=== PATIENT | female | born 1930 | race Caucasian/White ===

== ENCOUNTER 2016-08-10 14:39 | Inpatient (IN) | payer MEDICARE ==
--- NOTE | ~2016-08-10 | CR72 ---
[facility] A Service of [facility] RADIOLOGY TEXT RESULTS PATIENT: NICHOLAS REA LOCATION: [facility] 202-01 : 30 UNIT #: [id number] AGE: [address]: Efren Alcantara MD SEX: F ORDER DR: [id number] [facility] [address]. [place], [place] [address] [id number] E MR#: [id number] Acc #: [id number] NAME: NICHOLAS REA : 1930 SEX: F STUDY DATE/TIME: 08/10/2016 UNIT: [facility] ROOM: STUDY DESCRIPTION: CR Chest Single View Portable Attending Physician: Ethel Webster M.D. Ordering Physician: Ethel Webster M.D. Primary Care Physician: Mihir Donaldson M.D. MEDICAL IMAGING REPORT This report is preliminary unless electronic signature is present EXAM Chest portable 08/10/2016 at 1351 hours HISTORY 86-year-old woman with fever and lethargy today. Prior history of thyroid cancer. COMPARISON Chest CT 01/22/2016. Chest film 01/21/2016. FINDINGS A single upright portable view of the chest demonstrates low lung volumes. Allowing for this, the heart size is stable at the upper limits of normal. There is a tortuous atherosclerotic aorta without change. There is perihilar vascular crowding. There is mild interstitial prominence in the perihilar regions felt likely due to atelectasis given the low lung volumes. No definite edema, pneumonia or effusion seen. Stable benign calcified granulomatous changes. IMPRESSION Low lung volume film with perihilar vascular crowding and interstitial prominence felt likely due to the expiratory nature of the film. No definite acute cardiopulmonary findings are seen. Dictated by... Allyssa Fuentes M.D. THIS IS AN ELECTRONICALLY VERIFIED REPORT Allyssa Fuentes M.D. at 08/11/2016 9:27 AM SMM/pcl [facility] A Service [facility] RADIOLOGY TEXT RESULTS PATIENT: NICHOLAS REA [id number] UNIT #: [id number] AGE: [address]: Efren Alcantara MD SEX: F ORDER DR: TD: 08/10/2016 18:15 JOB #: [id number] MEDICAL IMAGING REPORT COPY
--- NOTE | ~2016-08-10 | DS ---
Unit #: [id number] #: [id number] Patient: NICHOLAS LAURENT [id number] [address] [place], [place] [address] [id number] I MR#: [id number] NAME: NICHOLAS LAURENT ROOM: 202 Age: 86 Sex: F Admission Date: 08/10/2016 : 1930 Discharge Date: 08/16/2016 Attending Physician: Efren Alcantara M.D. Primary Care Physician: Mihir Donaldson M.D. DISCHARGE SUMMARY ADDENDUM Ms. Laurent's potassium was 2.9 the morning of discharge. It is being replaced with supplemental potassium and a magnesium will be checked. If labs are okay in followup, she will be discharged home. She should have a BMP checked in Dr. Cox's office in one week. Dictated by... Alok Garces/adriana TD: 08/16/2016 11:25 JOB #: [id number] CC: Alok Vasques M.D. DISCHARGE SUMMARY X Efren Alcantara MD X DISCHARGE SUMMARY
--- NOTE | ~2016-08-10 | CT98 ---
[facility] A Service of [facility] RADIOLOGY TEXT RESULTS PATIENT: NICHOLAS REA LOCATION: A : 30 UNIT #: [id number] AGE: [address]: Efren Alcantara MD SEX: F ORDER DR: [id number] [place] [id number] [facility]. [place], [place] [address] [id number] I MR#: [id number] Acc #: [id number] NAME: NICHOLAS REA : 1930 SEX: F STUDY DATE/TIME: 08/11/2016 18:49 UNIT: A ROOM: [facility] STUDY DESCRIPTION: CT Lumbar Spine Wo Cont Attending Physician: Efren Alcantara M.D. Ordering Physician: Efren Alcantara M.D. Primary Care Physician: Mihir Donaldson M.D. MEDICAL IMAGING REPORT This report is preliminary unless electronic signature is present EXAM CT lumbar spine without contrast HISTORY Low back pain for 2 days. No injury. TECHNIQUE This CT examination was performed with one or more of the following radiation dose reduction techniques: automatic exposure control, adjustment of mA and/or kV according to patient size, and iterative reconstruction. FINDINGS CT lumbar spine was performed without contrast. The exam is limited by motion artifact. No fracture is identified. Small Schmorl's node in the superior endplate of L1. Moderately severe disc space narrowing at L1-2. Grade 1 spondylolisthesis of L4 on L5. Mild disc space narrowing at L3-4. Moderately advanced degenerative facet arthropathy in the kpr-qd-ijerw lumbar spine from L3-4 to L5-S1. At L1-2, there is mild diffuse disc bulging and mild bilateral facet hypertrophy. At L2-3, there is mild diffuse disc bulging and moderate bilateral facet and ligamentous hypertrophy with ical-if-lxoxcqyo central canal narrowing. At L3-4, there is a mild diffuse disc bulging, moderate bilateral facet hypertrophy and moderate to moderately severe central canal narrowing. At L4-5, there is moderately severe diffuse disc bulging and facet and ligamentous hypertrophy causing severe central canal narrowing. There is also mild bilateral outlet foraminal narrowing. STS. [facility] A Service of [facility] RADIOLOGY TEXT RESULTS PATIENT: NICHOLAS REA LOCATION: A 202-01 : 30 UNIT #: [id number] AGE: [address]: Efren Alcantara MD SEX: F ORDER DR: At L5-S1, there is mild diffuse disc bulging but no significant central canal narrowing or outlet foraminal narrowing. IMPRESSION 1. No acute findings are identified. Sensitivity is limited by motion artifact. 2. Severe central canal narrowing at L4-5 secondary to diffuse disc bulging and facet and ligamentous hypertrophy. 3. Additional fipc-tt-amplhaha multilevel central canal narrowing secondary to degenerative and hypertrophic changes as described. 4. Moderately severe disc space narrowing at L1-2. 5. Grade 1 spondylolisthesis of L4 on L5. Dictated by... Brent Silver M.D. THIS IS AN ELECTRONICALLY VERIFIED REPORT Brent Silver M.D. at 08/12/2016 2:21 PM ALEXX/lily TD: 08/12/2016 06:30 JOB #: [id number] MEDICAL IMAGING REPORT COPY
--- NOTE | ~2016-08-10 | A ---
[facility] Nutrition Therapy DATE: 08/11/16 Patient: NICHOLAS REA Physician: JOCELYN Address: [address] [place] [address] Room/Bed: [address] [place] [address], Zip: [place] [address] Admit Date: 08/10/16 Date of : 30 Height: 5 2 Weight: 151 68.5 NUTRITIONAL ASSESSMENT: REASON: 3 NUTRITION RISK PT RE: WEIGHT LOSS + POOR PO INTAKE PT IS 86 Y.O. FEMALE ADMITTED FOR AMS PMH: NO RECENT PMH IN [facility]. PER CHART: HTN, DEMENTIA, HYPOTHYROIDISM, THYROID CANCER Anthropometrics: 5'2", WT: 151# (69 KG), BMI: 27.6 Labs: GLU: 111, CA+:8.2, ALB: 3.3 Meds: NACL, D5%, SYNTHROID I/O & Bowel function: 1200/1625 Skin Integrity: DRY SKIN NOTED ALL OVER BODY Estimated Nutrition Needs: INCREASED NUTRIENT NEEDS 2' WEIGHT LOSS NOTED (PER ) + DECREASED PO INTAKE AND APPETITE NOTED Assessment: CHART REVIEWED AND EVENTS NOTED. PT SEEN FOR WEIGHT LOSS + POOR INTAKE. PT CONFUSED AT TIME OF VISIT. RD SPOKE TO WHO CONFIRMED PT TO HAVE POOR PO INTAKE 2' DECREASED APPETITE D/T DEMENTIA (NOTED TO HAVE PAST 4-5 YEARS). NOTES PT HAS LOST ~5-6# PAST 2 MONTHS/3-4% NOT SIGNIFICANT BUT NOTABLE. THIS RD ENCOURAGED SMALL FREQUENT MEALS + SUPPLEMENT INTAKE. OF NOTE, PT CURRENTLY NPO 2' AMS (DX). REPORTED NO DIET QUESTIONS AT THIS TIME. RD TO FOLLOW. SEE RECOMMENDATIONS BELOW. Dx: INADEQUATE NUTRIENT INTAKE R/T DEMENTIA, DECREASED APPETITE AEB REPORT ABOVE, WEIGHT LOSS NOTED. Intervention: 1. NPO Monitoring, Evaluation and Goals: 1. PO INTAKE; PROVIDE AND CONSUME ADEQUATE NUTRITION W/NO C/O N/V/D (PO>50%) 2. WEIGHTS; PREVENT FURTHER WEIGHT LOSS; PROMOTE WEIGHT MAINTENANCE 3. LABS; WNL 4. GI; PROMOTE REGULAR GI FUNCTION MONITOR: -DIET ADVANCEMENT -PO INTAKE/APPETITE [facility] Nutrition Therapy DATE: 08/11/16 Patient: NICHOLAS REA Physician: JOCELYN Address: [address] [place] [address] Room/Bed: [address] [place] [address], Zip: [place] [address] Admit Date: 08/10/16 Date of : 30 Height: 5 2 Weight: 151 68.5 -WEIGHTS Recommendations: 1. ONCE MEDICALLY FEASIBLE, ADVANCE DIET TOLERATED TO REGULAR DIET TO BETTER FACILITATE PO INTAKE 2. ONCE DIET ADVANCES, PLEASE ORDER [place] ENSURE PUDDING BID W/MEALS 3. APPRECIATE FAMILY AND STAFF ENCOURAGE ADEQUATE KCAL, PROTEIN AND FLUID INTAKE RD WILL F/U PER PROTOCOL PT IS MODERATELY COMPROMISED Respectfully, KENY CURRIE MS, RD, LD [facility] and Nutrition[facility] Services [facility] cc: client file
--- NOTE | ~2016-08-10 | CT71 ---
[facility] A Service of [facility] & [facility] RADIOLOGY TEXT RESULTS PATIENT: NICHOLAS REA LOCATION: A 202-01 : 30 UNIT #: [id number] AGE: [address]: Efren Alcantara MD SEX: F ORDER DR: [id number] [facility] [address]. [place], [place] [address] [id number] E MR#: [id number] Acc #: [id number] NAME: NICHOLAS REA : 1930 SEX: F STUDY DATE/TIME: 08/10/2016 14:06 UNIT: [facility] ROOM: STUDY DESCRIPTION: CT Head Wo Contrast Attending Physician: Ethel Webster M.D. Ordering Physician: Ethel Webster M.D. Primary Care Physician: Mihir Donaldson M.D. MEDICAL IMAGING REPORT This report is preliminary unless electronic signature is present EXAM CT head, 08/10/2016 HISTORY Lethargic, confusion since this a.m., last seen normal at [address] exam was performed with one or more of the following radiation dose reduction techniques: Automatic exposure control, adjustment of mA and/or kV according to patient size, and iterative reconstruction. CT head performed skull base through vertex without intravenous contrast. No prior CTs of head for comparison at this institution. No comparisons. Brainstem unremarkable. Cerebellum and cerebral hemispheres show normal polk matter-white matter differentiation. No hemorrhage. No evidence of acute cortical ischemia. The midline structures are nondisplaced. There are periventricular and deep white matter tract hypodensities bilaterally most suggestive of sequelae of chronic microvascular ischemia. Ventricles, cisterns and sulci show mild generalized enlargement consistent with mild generalized atrophy. No intra- or extraaxial mass effect or abnormal intracranial fluid collection. Cavernous carotid and distal vertebral arterial calcifications are noted. The visualized paranasal sinuses and mastoid air cells show what is probably a large mucous retention cyst in the right maxillary sinus. Small mucous retention cyst left maxillary sinus. No indication of acute sinusitis. Minimal mucosal thickening in the right sphenoid sinus. No fracture. IMPRESSION 1. No acute abnormality seen in brain. If patient has ongoing neurologic symptoms, consider followup imaging, preferably with MRI if the patient is a candidate. 2. Mild generalized atrophy. [facility]. [facility] A Service of [facility] RADIOLOGY TEXT RESULTS PATIENT: NICHOLAS REA LOCATION: A 202-01 : 30 UNIT #: [id number] AGE: [address]: Efren Alcantara MD SEX: F ORDER DR: 3. Periventricular and deep white matter tract probable sequelae of chronic microvascular ischemia. 4. Cavernous carotid and distal vertebral arterial calcifications. 5. Mucous retention cysts bilateral maxillary sinuses, more pronounced on right than left. Minimal mucosal thickening right sphenoid sinus. No findings of acute sinusitis. Dictated by... Andrew Benitez M.D. THIS IS AN ELECTRONICALLY VERIFIED REPORT Andrew Benitez M.D. at 08/12/2016 4:25 PM KATIE/jessica TD: 08/10/2016 20:01 JOB #: [id number] MEDICAL IMAGING REPORT COPY
--- NOTE | ~2016-08-10 | CO ---
Unit #: [id number] #: [id number] Patient: NICHOLAS REA [id number] [address] [place], [place] [address] [id number] I MR#: [id number] NAME: NICHOLAS REA ROOM: 202 Age: 86 Sex: F Admission Date: 08/10/2016 : 1930 Attending Physician: Efren Alcantara M.D. Primary Care Physician: Mihir Donaldson M.D. CONSULTATION REPORT HISTORY OF PRESENT ILLNESS Ms. Larsen is an 86-year-old white female with a history of Alzheimer dementia, who presented due to altered mental status. 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 She has been agitated and in altered mental status since then. She was brought in by her for evaluation. In the emergency room, CT scan of the head showed no acute disease; CT scan of the abdomen and pelvis showed some dilated bladder and possibly some mild hydronephrosis, but no ureteral obstruction. Chest x-ray showed no acute infiltrate. Urinalysis showed no white cells or red cells. Chemistry was unremarkable. Sodium was 137. Ammonia level was 14. Lactic acid level was 0.9. Coags were normal. White blood cell count 10,700, hematocrit was 39.9, platelet count was normal. We were called to admit the patient. My partner gave orders overnight for admission. She has been started on Rocephin and given one dose of vancomycin. PAST MEDICAL HISTORY Significant for Alzheimer dementia, hypothyroidism on replacement, history of thyroid cancer, and history of hypertension. ALLERGIES No known allergies. MEDICATIONS Listed include levothyroxine and losartan. PAST SURGICAL HISTORY Appendectomy and hysterectomy. SOCIAL HISTORY Nonsmoker. No alcohol. No illicit drugs. Lives with cousin. FAMILY HISTORY Negative for lung disease. REVIEW OF SYSTEMS GENERAL: The patient is demented. Difficulty to get a history, but according to the , she had no fevers or chills. HEENT: No rhinorrhea or nasal congestion. PULMONARY: No cough. No purulent sputum. GI: She has been nauseated and not eating much. : Denies hematuria or dysuria. ENDOCRINE: No polyuria or polydipsia. Does have a history of hypothyroidism. Unit #: [id number] #: [id number] Patient: NICHOLAS REA NEURO: No unilateral weakness or numbness. She does have dementia. SKIN: No rash. MUSCULOSKELETAL: Pain as noted. PHYSICAL EXAMINATION GENERAL: White female, in no distress. VITAL SIGNS: Blood pressure of 176/62, pulse 72, respiratory rate 18, afebrile, T-max 100.4. HEENT: Normocephalic and atraumatic. Pupils are equal, round, and reactive. Sclerae nonicteric. Nasal passages patent. Posterior pharynx clear. Mucous membranes are moist. NECK: Supple. Trachea midline. No cervical or supraclavicular lymphadenopathy. LUNGS: Clear to auscultation and percussion. CARDIAC: Regular rate and rhythm. I do not appreciate murmur, rub, or gallop. ABDOMEN: Nontender. Bowel sounds are present. No hepatosplenomegaly. EXTREMITIES: Without clubbing, cyanosis, or edema. Homans sign negative. NEUROLOGIC: Awake, alert, and oriented x3. Cranial nerves intact. Muscle strength symmetric bilaterally. Affect, calm. DIAGNOSTIC STUDIES LABORATORY RESULTS: Personally reviewed as noted. IMAGING STUDIES: Chest x-ray, CT scan, abdominal CT scan, etc reviewed. IMPRESSION 1. Altered mental status. 2. Underlying dementia. 3. Low back pain. 4. Hypothyroidism, on replacement. PLAN We will check LS spine film. Will rule out infection by cultures. Continue Rocephin. Discontinue vancomycin. Provide some degree of pain control. Physical and occupational therapy to see. Further recommendations pending this. Dictated by... Efren Alcantara M.D. DENNIS/chris TD: 08/12/2016 02:35 JOB #: [id number] CONSULTATION REPORT X Efren Alcantara MD X CONSULTATION REPORT
--- NOTE | ~2016-08-10 | DS ---
Unit #: [id number] #: [id number] Patient: NICHOLAS REA [id number] [address] [address] [id number] I MR#: [id number] NAME: NICHOLAS REA ROOM: 202 Age: 86 Sex: F Admission Date: 08/10/2016 : 1930 Discharge Date: 08/16/2016 Attending Physician: Efren Alcantara M.D. Primary Care Physician: Mihir Donaldson M.D. DISCHARGE SUMMARY DISCHARGE DIAGNOSES 1. Low back pain secondary to lumbosacral spinal stenosis, primarily lumbar 4-5 and lumbar 1-2. 2. Severe Alzheimer dementia. 3. Hypothyroidism, on replacement. 4. History of thyroid cancer. 5. Hypertension. 6. Hypokalemia. 7. Hk-nzc-xrwesyzpydz status. DISCHARGE MEDICATIONS 1. Colace 100 mg b.i.d. 2. MiraLAX 17 grams in 8 ounces of fluid daily. 3. Losartan 50 mg daily. 4. Lortab 5/325 mg. 5. Levothyroxine 112 mcg daily. FOLLOW-UP Follow up with Dr. Cox/Dr. Donaldson in 1 week. HOSPITAL COURSE This is an 86-year-old white female with history of Alzheimer dementia who presented due to altered mental status and back pain. 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 She had become agitated with worsening mental status and was brought in by her . CT scan of the head showed no acute disease. CT scan of the abdomen and pelvis showed a dilated bladder and possibly some mild hydronephrosis but no urethral obstruction. Chest x-ray showed no infiltrate, mass or congestion. Urinalysis showed no white cells or red cells. Ammonia level was 14. Sodium was 137. Lactic acid level was 0.9. Coags were normal. White count was 10,700, hematocrit 39.9. She was admitted. She complained of rather severe back pain, which limited her ability to move. The morning following admission, the felt like her mental status was the same. CT scan of the lumbosacral spine revealed no acute findings. There was severe central canal narrowing at L4-5 with diffuse disk bulging and facet and ligamentous hypertrophy. There was swoh-rs-mjuljbjd mid level central canal narrowing secondary to DJD. There was moderately severe disk space narrowing L1-L2. There was grade 1 spondylolisthesis of L4-5. She was started on a Medrol Dosepak, Lidoderm patch and narcotics with significant improvement in pain control. She was seen by PT and OT. On Tuesday, she was really not able to get out of bed without significant assistance, but over the weekend she improved. She is able to get up on the side of the bed by herself. She is walking in the [place] with a rolling walker. We had wanted her to go to rehab, but as she improved over the Unit #: [id number] #: [id number] Patient: NICHOLAS REA weekend, her wished to take her home and did not wish her to go to rehab. She will be discharged home with visiting nurses and visiting PT/OT. Family will be there to care for her. She was also seen in the hospital by Dr. Stephen, as she had not seen a neurologist for her Alzheimer. He agreed with diagnosis. B12 and folate levels were checked. B12 was 474, folate was 14.3 - all within normal range. She is to follow up with Dr. Cox in one week. Apparently treatment has been attempted with Aricept, but she did not tolerate that medication Dictated by... Efren Alcantara M.D. DENNIS/cora TD: 08/16/2016 11:49 JOB #: [id number] DISCHARGE SUMMARY X Efren Alcantara MD X DISCHARGE SUMMARY
--- NOTE | ~2016-08-10 | CR63 ---
[facility] A Service of [facility] RADIOLOGY TEXT RESULTS PATIENT: NICHOLAS REA LOCATION: [facility] : 30 UNIT #: [id number] AGE: [address]: Efren Alcantara MD SEX: F ORDER DR: [id number] [facility] [address] [facility]. [place], [place] [address] [id number] I MR#: [id number] Acc #: [id number] NAME: NICHOLAS REA : 1930 SEX: F STUDY DATE/TIME: 08/11/2016 7:19 UNIT: [facility] ROOM: [facility] STUDY DESCRIPTION: CR Chest 2 View Attending Physician: Efren Alcantara M.D. Ordering Physician: Efren Alcantara M.D. Primary Care Physician: Mihir Donaldson M.D. MEDICAL IMAGING REPORT This report is preliminary unless electronic signature is present EXAM Chest x-ray, 08/11/2016 HISTORY 86-year-old female admitted through the ED yesterday with fever, lethargy. Shortness of air. TECHNIQUE AP and lateral upright chest series. FINDINGS The exam shows low lung volumes with minimal bibasilar atelectasis. Lungs otherwise clear. No visible pulmonary infiltrate or pleural effusion. Stable mild cardiomegaly with normal pulmonary vascularity. No significant change since yesterday. IMPRESSION No active disease. No change since yesterday. Dictated by... Daniel Mcelroy M.D. THIS IS AN ELECTRONICALLY VERIFIED REPORT Daniel Mcelroy M.D. at 08/11/2016 4:12 PM TED/shonna TD: 08/11/2016 11:03 JOB #: [id number] MEDICAL IMAGING REPORT COPY
--- NOTE | ~2016-08-10 | EKG ---
PATIENT: NICHOLAS REA UNIT #: [id number] Ventricular Rate: 83 BPM Atrial Rate: 83 BPM P-R Interval: 154 ms QRS Duration: 86 ms Q-T Interval: 400 ms QTC Calculation(Bezet): 470 ms P Rutland: 75 degrees Calculated R [place]: -32 degrees Calculated T [place]: 164 degrees Diagnosis Line: Normal sinus rhythm Diagnosis Line: Left axis deviation Diagnosis Line: ST and T wave abnormality, consider lateral ischemia Diagnosis Line: Prolonged QT Diagnosis Line: Abnormal ECG Diagnosis Line: No previous ECGs available Diagnosis Line: Confirmed by GABE RAYMOND MD ([id number]) on Diagnosis Line: 08/10/2016 4:16:45 PM INTERPRETING MD: SEGUNDO ANGEL
--- NOTE | ~2016-08-10 | CT2 ---
[facility] A Service of [facility] & [facility] RADIOLOGY TEXT RESULTS PATIENT: NICHOLAS REA LOCATION: C2A : 30 UNIT #: [id number] AGE: [address]: Efren Alcantara MD SEX: F ORDER DR: [id number] [facility] [address] [facility]. [place], [place] [address] [id number] I MR#: [id number] Acc #: [id number] NAME: NICHOLAS REA : 1930 SEX: F STUDY DATE/TIME: 08/10/2016 17:56 UNIT: C2A ROOM: 202 STUDY DESCRIPTION: CT Abd and Pelv W Cont Attending Physician: Efren Alcantara M.D. Ordering Physician: Ethel Webster M.D. Primary Care Physician: Mihir Donaldson M.D. MEDICAL IMAGING REPORT This report is preliminary unless electronic signature is present EXAM CT of the abdomen and pelvis with contrast. INDICATIONS 86-year-old female with abdominal pain that started today in the emergency room. TECHNIQUE CT of the abdomen and pelvis was performed following the administration of IV contrast. Coronal and sagittal reformatted images were obtained. This CT exam was performed with one or more of the following radiation dose reduction techniques: automatic exposure control, adjustment of mA and/or kV according to patient size, and iterative reconstruction. COMPARISON Comparison is made with 01/21/2016. FINDINGS Evaluation of the lung bases demonstrates stable bilateral lower lobe scarring/atelectasis. The liver, gallbladder, and spleen are unremarkable. There is mild bilateral hydronephrosis and hydroureter. There is no evidence of any obstructing stone or other obstruction. The left adrenal gland is unremarkable. There is a stable right adrenal nodule, presumably an adenoma. The pancreas is unremarkable. PELVIS: There is marked distension of the urinary bladder. Large amount of stool in the colon. No evidence of bowel obstruction. Hysterectomy. Bone windows demonstrate degenerative changes of the lumbar spine. IMPRESSION 1. There is marked distension of the urinary bladder and also some mild bilateral hydronephrosis and hydroureter. There is no evidence of any ureteral obstruction, either intrinsic or extrinsic. I suspect STS. [facility] A Service of [facility] & [facility] RADIOLOGY TEXT RESULTS PATIENT: NICHOLAS REA LOCATION: [facility] 202-01 : 30 UNIT #: [id number] AGE: [address]: Efren Alcantara MD SEX: F ORDER DR: that the hydronephrosis and hydroureter is due to reflux of urine as the bladder is markedly distended. 2. There is a large amount of stool in the colon, which may indicate constipation. 3. Stable bilateral lower lobe scarring or atelectasis. Dictated by... Garcia Reddy M.D. THIS IS AN ELECTRONICALLY VERIFIED REPORT Garcia Reddy M.D. at 08/11/2016 3:37 PM LEANDRO/shady TD: 08/11/2016 08:09 JOB #: [id number] MEDICAL IMAGING REPORT COPY
--- NOTE | ~2016-08-10 | CO ---
Unit #: [id number] #: [id number] Patient: NICHOLAS REA [id number] [facility] [address] [facility] [place] [facility]. [place], [place] [address] [id number] MR#: [id number] NAME: NICHOLAS REA ROOM: 202 Age: 86 Sex: F Admission Date: 08/10/2016 : 1930 Attending Physician: Efren Alcantara M.D. Primary Care Physician: Mihir Donaldson M.D. Consultation Date: 08/14/2016 CONSULTATION REPORT REASON FOR CONSULTATION Neurological evaluation as the patient has Alzheimer disease and now one of the question is placement. PATIENT IDENTIFICATION This is an 86-year-old apparently right-handed, white female, who is evaluated in room 202 at [facility]. SOURCE OF INFORMATION The medical records and my discussion with the patient's . PROBLEM LIST 1. Advanced Alzheimer disease. 2. Hypothyroidism. 3. History of thyroid cancer. 4. History of appendectomy and hysterectomy. 5. Back pain. 6. Hypertension. HISTORY OF PRESENT ILLNESS This is an 86-year-old female, who actually was admitted after she presented with mental status changes and myoclonic type jerks. This happened the day before she was admitted, so must be on the 08/09/2016 and she always is rearranging things in her home and she bent down to berry picker a box and had sudden back pain. So, she went to bed and did not do much that day, but the next day, she was confused, she was having jerking type activity, which could be multifocal myoclonus. So, she was brought in. She is now waking up, and now the question is where does she go from here. Her wants to take her home, but she needs some physical therapy and possible placement. On the labs, there was nothing major. CT was okay. She has been nonfocal. When I went to see her, she was arousable. She started singing nursery rhymes with me. She was following some simple commands, but she is not oriented to time, place or person, not even herself. She is following some simple commands, moving all extremities. No real back pain reported. Some myoclonic activity was seen. No seizures. No migraine. Nothing suggesting major stroke. Nothing suggesting GRAN[employer] CUTTER infection. PAST MEDICAL HISTORY As discussed above. Unit #: [id number] #: [id number] Patient: NICHOLAS REA PAST SURGICAL HISTORY As discussed above. ALLERGIES None. HOME MEDICATIONS Levothyroxine, losartan. FAMILY HISTORY No brain disease is known to me. SOCIAL HISTORY She lives with her . No tobacco, alcohol, or drug use. REVIEW OF SYSTEMS Could not be obtained because of her present condition, but there is nothing suggesting headaches, double vision, earache, runny nose, sore throat. No cough. No chest pain. No nausea, vomiting, diarrhea, or constipation. She has some back pain. Psychiatric issue was dementia. Neurologic issue was dementia. No other hematologic, dermatological, or endocrine issues, but she had thyroid cancer. PHYSICAL EXAMINATION VITAL SIGNS: Temperature 97.7, pulse 80, respirations 16, blood pressure 159/84, O2 sats were 96% to 100%. NEUROLOGIC: The patient was arousable. She can name a few objects. She can follow some very simple commands. She started singing with me when I started singing twinkle, twinkle little star. Cranial nerve examination; she responded to threats in the primary guerrero. Pupils are about 1.5 mm and she would not have me examine her more. She says it was rude to shine light in her eyes. Eye movements seemed to be conjugate. No ptosis. No nystagmus. Sensation on the face and scalp was present. Muscles of facial expression seemed to be symmetric. Hearing seemed to be intact. Tongue was midline. I could not visualize oropharynx or uvula. Head turning was spontaneous. No neck stiffness was seen. Motor examination; she was moving all extremities and some myoclonus was seen. She withdraws. The strength is at least 4+ to 5- all over. Sensory examination; responded to pain. I could not get any reflexes. Toes are mute. Gait and coordination otherwise could not be evaluated easily, but she was able to do [id number] on the right side and also some on the left side, but not repetitive movements otherwise. DIAGNOSTIC STUDIES LABORATORY RESULTS: Reviewed. IMAGING STUDIES: Reviewed. IMPRESSION 1. Advanced Alzheimer disease. 2. Worsening cognitive changes. 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 I will check her B12 and folate levels and if their levels were less than 500, then I will recommend treatment for that. The reason I got consulted was to try to convince the family that probably she needs placement. I did talk to her and he acknowledges that he would let her to go to rehab first and then go home. She is not otherwise a major acute neurologic issue, but I will be willing to work with the team and the patient's to see if they want to do further evaluation or testing, which may include further imaging studies and anything else that come including EEG, LP and other studies, but it looks like that is not the direction they are going right now. So, call me for any other questions, issues or concerns and I will be more than glad to revisit her. Dictated by... Alok Reilly/chris TD: 08/14/2016 22:31 JOB #: [id number] CONSULTATION REPORT X Israel Stephen MD X CONSULTATION REPORT
[2016-08-10 13:56] LABS: URINE SOURCE CATH
[2016-08-10 14:02] LABS: URINE APPEARANCE CLOUDY; URINE BILIRUBIN NEG (NEG); URINE BLOOD NEG (NEG); URINE COLOR YELLOW; URINE GLUCOSE NEG (NEG); URINE KETONE TRACE (NEG); URINE LEUKOCYTE ESTERASE NEG (NEG); URINE NITRATE NEG (NEG); URINE PROTEIN NEG (NEG); URINE SPECIFIC GRAVITY 1.014 (1.003-1.035)
[2016-08-10 14:03] LABS: BASOPHIL# 0.1 X10e3 (0-0.3); BASOPHIL% 0.9 % (0-2.5); EOSINOPHIL# 0.1 X10e3 (0-0.7); HEMATOCRIT 39.9 % (35.0-45.0); HEMOGLOBIN 13.3 gm/dL (12.0-16.0); LYMPHOCYTE# 1.9 X10e3 (1.0-3.5); LYMPHOCYTE% 17.7 % (17.0-45.0); MEAN CELL VOLUME 87.2 FL (83-96); MEAN CORPUSCULAR HEMOGLOBIN 29.1 PG (28-34); MEAN CORPUSCULAR HGB CONC 33.4 g/dL (30-36); MEAN PLATELET VOLUME 7.6 FL (6.5-11.5); MONOCYTE# 1.3 X10e3 (0-1.0); MONOCYTE% 11.9 % (3.0-12.0); NEUTROPHIL# 7.3 X10e3 (1.5-7.1); NEUTROPHIL% 68.5 % (40-75); PLATELET COUNT 337 X10e3 (140-420); RED BLOOD COUNT 4.58 X10e (3.90-5.30); RED CELL DISTRIBUTION WIDTH 13.7 % (11.0-15.5); WHITE BLOOD COUNT 10.7 X10e3 (4.0-10.5)
[2016-08-10 14:04] LABS: CULTURE INDICATED? NO
[2016-08-10 14:05] LABS: DIFF IND NO
[2016-08-10 14:09] LABS: POC - CKMB 1.7 ng/mL (0.0-7.9); POC - TROPONIN <0.05 ng/mL (<=0.05)
[2016-08-10 14:13] LABS: INFLUENZA A NEG (NEG); INFLUENZA B NEG (NEG)
[2016-08-10 14:17] LABS: PARTIAL THROMBOPLASTIN TIME 28.4 SECONDS (23.5-31.3); PROTHROMBIN TIME (PATIENT) 10.9 SECONDS (9.6-11.5)
[2016-08-10 14:32] LABS: ALBUMIN SERUM 3.8 g/dL (3.5-5.0); ALKALINE PHOSPHATASE 80 U/L (32-92); ALT (SGPT) 14 U/L (10-40); AST (SGOT) 22 U/L (10-42); BILIRUBIN, DIRECT 0.1 mg/dL (0.0-0.2); BILIRUBIN,INDIRECT 0.6 mg/dL (0.0-0.9); BILIRUBIN,TOTAL 0.7 mg/dL (0.2-2.0); BLOOD UREA NITROGEN 12 mg/dL (9-23); BUN/CREATININE RATIO 17.14; CALCIUM SERUM 8.6 mg/dL (8.4-10.2); CARBON DIOXIDE 28 mmol/L (22-31); CHLORIDE 101 mmol/L (100-111); CREATININE SERUM 0.7 mg/dL (0.6-1.4); GLOM FILT RATE Estimated ABOVE60 mL/min (>60); GLUCOSE FASTING 98 mg/dL (70-110); POTASSIUM 3.6 mmol/L (3.5-5.1); PROTEIN TOTAL SERUM 7.2 g/dL (6.0-8.3); SODIUM 137 mmol/L (135-145)
[~2016-08-10 14:39] MED LIST: DOCUSATE SODIU100 MG PO; LEVOTHYROXINE112 MCG PO; LOSARTAN POTASS50 MG PO; LOSARTAN-HCTZ1 EACH PO; NAPROXEN375 M1 PO; PROTONIX PO
[2016-08-10 15:38] LABS: POC - CKMB 1.4 ng/mL (0.0-7.9); POC - TROPONIN <0.05 ng/mL (<=0.05)
[2016-08-11 05:26] LABS: BASOPHIL# 0.1 X10e3 (0-0.3); BASOPHIL% 0.7 % (0-2.5); EOSINOPHIL# 0.2 X10e3 (0-0.7); HEMATOCRIT 36.3 % (35.0-45.0); HEMOGLOBIN 12.1 gm/dL (12.0-16.0); LYMPHOCYTE# 1.9 X10e3 (1.0-3.5); MEAN CELL VOLUME 87.8 FL (83-96); MEAN CORPUSCULAR HEMOGLOBIN 29.2 PG (28-34); MEAN CORPUSCULAR HGB CONC 33.2 g/dL (30-36); MEAN PLATELET VOLUME 7.8 FL (6.5-11.5); MONOCYTE# 1.2 X10e3 (0-1.0); MONOCYTE% 11.5 % (3.0-12.0); NEUTROPHIL# 7.2 X10e3 (1.5-7.1); NEUTROPHIL% 67.8 % (40-75); PLATELET COUNT 292 X10e3 (140-420); RED BLOOD COUNT 4.13 X10e (3.90-5.30); RED CELL DISTRIBUTION WIDTH 13.3 % (11.0-15.5); WHITE BLOOD COUNT 10.7 X10e3 (4.0-10.5)
[2016-08-11 05:33] LABS: DIFF IND NO
[2016-08-11 06:56] LABS: ALBUMIN SERUM 3.3 g/dL (3.5-5.0); ALKALINE PHOSPHATASE 75 U/L (32-92); ALT (SGPT) 14 U/L (10-40); AST (SGOT) 21 U/L (10-42); BILIRUBIN,TOTAL 0.6 mg/dL (0.2-2.0); BLOOD UREA NITROGEN 10 mg/dL (9-23); BUN/CREATININE RATIO 16.66; CALCIUM SERUM 8.2 mg/dL (8.4-10.2); CARBON DIOXIDE 26 mmol/L (22-31); CHLORIDE 101 mmol/L (100-111); CREATININE SERUM 0.6 mg/dL (0.6-1.4); GLOM FILT RATE Estimated ABOVE60 mL/min (>60); GLUCOSE FASTING 111 mg/dL (70-110); POTASSIUM 3.5 mmol/L (3.5-5.1); PROTEIN TOTAL SERUM 6.2 g/dL (6.0-8.3); SODIUM 139 mmol/L (135-145)
[2016-08-15 07:08] LABS: FOLATE (FOLIC ACID) 14.3 ng/mL (>5.8)
[2016-08-16 05:24] LABS: HEMATOCRIT 36.7 % (35.0-45.0); HEMOGLOBIN 12.4 gm/dL (12.0-16.0); MEAN CELL VOLUME 87.1 FL (83-96); MEAN CORPUSCULAR HEMOGLOBIN 29.3 PG (28-34); MEAN CORPUSCULAR HGB CONC 33.7 g/dL (30-36); MEAN PLATELET VOLUME 7.6 FL (6.5-11.5); RED BLOOD COUNT 4.21 X10e (3.90-5.30); RED CELL DISTRIBUTION WIDTH 13.4 % (11.0-15.5); WHITE BLOOD COUNT 8.6 X10e3 (4.0-10.5)
[2016-08-16 05:56] LABS: BLOOD UREA NITROGEN 6 mg/dL (9-23); CALCIUM SERUM 8.2 mg/dL (8.4-10.2); CARBON DIOXIDE 28 mmol/L (22-31); CHLORIDE 100 mmol/L (100-111); CREATININE SERUM 0.6 mg/dL (0.6-1.4); GLOM FILT RATE Estimated ABOVE60 mL/min (>60); GLUCOSE FASTING 119 mg/dL (70-110); SODIUM 139 mmol/L (135-145)
[2016-08-16 06:02] LABS: POTASSIUM 2.9 mmol/L (3.5-5.1)
[2016-08-16] MEDS ORDERED: TYL325 PO (11:15)
[2016-08-16] MEDS ORDERED: DOCUSATE SODIU100 MG PO (11:16)
[2016-08-16] MEDS ORDERED: MIRALAX17 GM PO (11:16)
[2016-08-16] MEDS ORDERED: HYDROCODON-ACE1 EAC7 PO (11:17)
[2016-08-16 13:50] LABS: MAGNESIUM 1.9 mg/dL (1.6-3.0); POTASSIUM 3.9 mmol/L (3.5-5.1)
== END 2016-08-16 16:30 | disposition home health service (06) | DRG 552 ==
LOC: CED 14:39 → CEDOF 19:32 → C2A 21:48
PROVIDERS: Emergency Medicine; Family Medicine Sleep Medicine; Internal Medicine; Psychiatry & Neurology Neurology
DX: M48.07 Spinal stenosis, lumbosacral region (principal); G30.9 Alzheimer's disease, unspecified; G25.3 Myoclonus; F02.80 Dementia in other diseases classified elsewhere, unspecified severity, without behavioral disturbance, psychotic disturbance, mood disturbance, and anxiety; E03.9 Hypothyroidism, unspecified; Z85.850 Personal history of malignant neoplasm of thyroid; I10 Essential (primary) hypertension; Z90.710 Acquired absence of both cervix and uterus; Z90.49 Acquired absence of other specified parts of digestive tract; R41.82 Altered mental status, unspecified; E87.6 Hypokalemia; Z66 Do not resuscitate
CPT/HCPCS: 36415; 70450; 71010; 71020; 72131; 74177; 80048; 80053; 80076; 81003; 82140; 82553; 82607; 82746; 82947; 83605; 83735; 83880; 84132; 84443; 84484; 85025; 85027; 85610; 85730; 87040; 87804; 93005; 96361; 96365; 97110; 97116; 97163; 97166; 97530; 97535; 99285; G8978-GP; G8979-GP; G8987-GO; G8988-GO; G8989-GO; J0696; J2060; J2270; J2405; J2543; J3260; J3370; Q9967